=== PATIENT | female | born 1970 | race Caucasian/White ===

== ENCOUNTER → 2016-10-11 09:59 | Outpatient (CLI) | payer MEDICARE ==
--- NOTE | 2016-10-12 07:23 | NUR ---
Nutrition education for pre/post-op bariatric surgery: S: Pt unable to walk very far without being out of breath. Pt drove around to [facility] entrance so she would not have to walk very far; even with not walking very far, it took patient quite a while to breath normal. pt reports she does drink diet Dr. Kam but not a lot. Pt states she skips breakfast because she sleeps until noon. Pt gets no exercise due to her size and breathing issues. Pts 24 hour food recall and food frequency reveals pt is not eating very much at meals and she states she is not snacking. Pt also states most meals are cooked at home. Pt does report having a sweet tooth and she eats sweets daily but not excessively. Pt also loves to eat Brazilian food but reports she does not eat if very often. Pt states she does not eat fast food. Pt has been heavy all her adult life with no success with weight loss programs. Pt states she eats a [employer] frozen meal for lunch most days. O: 46 year old female with DMT2, extreme obesity Ht: 5'0 Wt: 290# IBW: 100# +/-10% BMI: 56.5 A: Pt is not being honest with RDN re: amount of food eaten at meals. According to pts 24 hour diet recall, pt is only eating ~1500 kcals per day. RDN discussed this with pt and stated she must start to weigh and measure food to eat the corret portion. Pt with no idea of what a portion size is. RDN reviewed portion sizes of commonly eaten foods. RDN provided pt with a 1500 kcal per day 5 day menus for 3 meals and 1 snack. RDN reviewed with pt and answered questions. Reviewed pre/post of bariatric diet. Diet phases post-op; 3 oz meal size; no carbonated drinks, no straws; importance of protein; vitamin supplements; stomach size and pouch stretching; no sweets or high fat foods; no soda. Pt provided with diet homework to begin now. Questions answered. Pt with fair understanding of information provided ; however, after a lifetime of eating large amounts of food RDN feels pt is going to have a very hard time adjusting to restrictive diet. RDN feels pt might not be able to make to necessary changes needed for long-term weight loss and maintenance. P: Provided pt with printed diet information and RDN name and phone number. RDN will be available if needed. Thank you for the consult.
== END | disposition home or self-care (01) ==
LOC: D.FANS 09:59
DX: Z01.818 Encounter for other preprocedural examination (principal)

== ENCOUNTER → 2016-12-05 12:20 | Outpatient (CLI) | payer MEDICARE | END | disposition home or self-care (01) | LOC: D.RT 12:20 | DX: R06.00 Dyspnea, unspecified (principal) ==

== ENCOUNTER → 2016-12-18 12:16 | Outpatient (CLI) | payer MEDICARE | END | disposition home or self-care (01) | LOC: D.CT 12:16 | DX: R94.2 Abnormal results of pulmonary function studies (principal) ==

== ENCOUNTER → 2017-02-16 12:49 | Outpatient (CLI) | payer MEDICARE | END | disposition home or self-care (01) | LOC: D.MRI 12:49 | DX: H55.00 Unspecified nystagmus (principal); H54.11 Blindness, right eye, low vision left eye ==

== ENCOUNTER → 2018-02-12 20:50 | Outpatient (CLI) | payer MEDICARE | END | disposition home or self-care (01) | LOC: D.MAMMO 01-23 11:30 | DX: Z12.31 Encounter for screening mammogram for malignant neoplasm of breast (principal) ==

== ENCOUNTER → 2019-05-07 08:15 | Outpatient (CLI) | payer MEDICARE | END | disposition home or self-care (01) | LOC: D.HCCECHO 08:15 | PROVIDERS: ATTEND Internal Medicine Cardiovascular Disease | DX: R06.00 Dyspnea, unspecified (principal) ==

== ENCOUNTER 2019-06-02 10:45 | Outpatient (CLI) | payer MEDICARE ==
[~2019-06-02] VITALS: Ht 152.4 cm; Wt 122.7 kg
--- NOTE | ~2019-06-02 | HEMODYNAMI ---
PATIENT:HAMIDA CROOK MEDICAL RECORD: [id number] : 66 LOCATION:[facility] ADMISSION DATE: 06/02/19 Generatedon:06/02/201914:01 Patient name: HAMIDA CROOK Patient #: [id number] SSN: [id number] : 1970 Date of study: 06/02/2019 Page: Of Hemodynamic Procedure Report Patient Data Patient Demographics Procedure consent was obtained First Name: HAMIDA Gender: Female Last Name: ARMAAN : 1970 [facility] Initial: KULWINDER Age: 48 year(s) Patient #: [id number] Race: SSN: [id number] Additional ID: [id number] Contact details [address]: [address] [place] [address] COURT State: [place] City: [place] Zip code: [address] Past Medical History Allergies Allergen Reaction Date Comments Reported Sulfa drugs 06/02/2019 Admission Admission Data Admission Date: 06/02/2019 Admission Time: 10:45 Procedure Procedure Types Cath Procedure Diagnostic Procedure C LH w/Coronaries Aortic Root Angiography Procedure Description Procedure Date Procedure Date: 06/02/2019 Procedure Start Time: 13:32 Procedure End Time: 13:59 Procedure Staff Name Function Javon Alex MD Performing Physician Colin Arguello RT Monitor Lula De La O RN Nurse Kayley Salomon RT Scrub Marlon Zaidi RT Scrub Indication Pulmonary hypertension Procedure Data Cath Procedure Fluoroscopy Diagnostic fluoroscopy Total fluoroscopy Time: 4.4 time: 4.4 min min Diagnostic fluoroscopy Total fluoroscopy dose: 572 dose: 572 mGy mGy Contrast Material Contrast Material Type Amount (ml) Isovue 370 112 Entry Location Entry Primary Successful Side Size Upsize Upsize Entry Closure Succes sful Closure Location (Fr) 1 (Fr) 2 (Fr) Remarks Device Remarks Femoral Right 5 Fr Exoseal artery Diagnostic catheters Device Type Used For End Catheter Placement MULTIPACK JL 4.0 5Fr Left Coronary catheter Angiography MULTIPACK 3DRC 5Fr Right Coronary catheter Angiography MULTIPACK Pigtail 5 Fr LV Angiography catheter Procedure Complications No complications Procedure Medications Medication Administration Route Dosage 0.9% NaCl I.V. 100 ml/hr Oxygen etCO2 Nasal cannula 2 l/min Lidocaine 2% added to field 20 Heparin Flush Bag added to field 2 bags (1000units/500ml NS) Radial Cocktail added to field 1 syringe (Verapamil 2mg/Nitro 400mcg/Heparin 1500units) Versed I.V. 2 mg Fentanyl I.V. 100 mcg Hemodynamics Rest Heart Rate: 77 (bpm) Pressure Samples Time Site Value (mmHg) Purpose Heart Use Rate(bpm) 13:52 LV 124/5,17 EDP 91 13:52 LV 125/5,20 Snapshot 92 13:55 AO 132/77(102) Pullback 98 13:55 LV 133/4,22 Pullback 98 Gradients Valve Time Site 1 Site 2 Mean SEP/DFP Peak To Heart Use (mmHg) (sec/min) Peak Rate (mmHg) (bpm) Aortic 13:55 LV AO 8 22 1 98 133/4,22 132/77(102) Calculations Valve P-P Mean Valve Index Valve Source Name Gradient Area Flow (cm2) Aortic 1 8 1 8 Snapshots Pre Cath Intra NCS Post Cath Vital Signs Time Heart Resp SPO2 etCO2 NIBP (mmHg) Rhythm Pain Sedation Rate (ipm) (%) (mmHg) Status Level (bpm) 13:08:44 67 15 98 40.6 135/87(100) NSR 0 (11) 10(A) , No pain 13:12:52 77 17 97 18 121/75(92) NSR 0 (11) 10(A) , No pain 13:16:56 76 15 96 43.5 126/76(96) NSR 0 (11) 10(A) , No pain 13:21:00 78 17 96 30.8 138/82(102) NSR 0 (11) 10(A) , No pain 13:25:05 84 21 96 55.5 144/87(104) NSR 0 (11) 10(A) , No pain 13:29:11 84 20 96 51.7 124/89(107) NSR 0 (11) 10(A) , No pain 13:33:15 81 21 97 53.3 124/78(94) NSR 0 (11) 10(A) , No pain 13:37:15 83 21 97 54.8 136/87(98) NSR 0 (11) 10(A) , No pain 13:41:22 85 22 95 52.5 137/80(103) NSR 0 (11) 10(A) , No pain 13:45:28 86 24 95 51.8 135/83(102) NSR 0 (11) 10(A) , No pain 13:49:32 89 23 96 53.3 140/87(114) NSR 0 (11) 10(A) , No pain 13:53:40 94 21 95 54.8 139/85(111) NSR 0 (11) 10(A) , No pain 13:58:35 96 20 96 45.8 152/84(117) NSR 0 (11) 10(A) , No pain Medications Time Medication Route Dose Verified Delivered Reason Notes E ffectiveness by by 13:07:53 0.9% NaCl I.V. 100 Javon Lula used for ml/hr Isai De La O rec therapist 13:07:59 Oxygen etCO2 2 l/min Javon Lula used for Nasal Isai De La O procedure cannula RN 13:08:05 Lidocaine 2% added 20ml Javon Javon for local to vial Isai Alex MD anesthetic field 13:08:09 Heparin Flush added 2 bags Javon Javon used for Bag to Isai Alex MD procedure (1000units/500ml field NS) 13:08:15 Radial Cocktail added 1 Javon Javon used for (Verapamil to syringe Isai Alex MD procedure 2mg/Nitro field 400mcg/Heparin 1500units) 13:22:02 Versed I.V. 2 mg Javon Lula for Isai De La O sedation RN 13:22:16 Fentanyl I.V. 100 mcg Javon Lula for Isai De La O sedation [employer]p [employer] Log Time Note 12:52:06 Informed consent obtained and on chart 12:52:28 Diagnostic Cath Status : Elective 12:53:37 Indication : Pulmonary hypertension 12:53:46 Procedure Status Elective Heart Cath (OP). 12:53:49 Lula De La O RN sent for patient. Start room use. 12:53:52 Time tracking: Regular hours (M-F 7:00 - 5:00) 12:54:01 Plan of Care:Hemodynamics will remain stable., Cardiac rhythm will remain stable., Comfort level will be maintained., Respiratory function will remain adequate., Patient/ family verbilizes understanding of procedure., Procedure tolerated without complication., Recovers from procedure without complications.. 13:02:13 Patient received from Pre/Post Procedure Room to CCL 3 Alert and oriented. Tansferred to table in Supine position. 13:04:01 Risk of Mortality: 0.5 13:04:06 Risk of blood transfusion: 1.6 13:04:11 Risk of YUDELKA: 3.6 13:07:36 Vital chart was started 13:07:53 0.9% NaCl 100 ml/hr I.V. was administered by Lula De La O RN; used for procedure; Verbal order read back and verified. 13:07:59 Oxygen 2 l/min etCO2 Nasal cannula was administered by Lula De La O RN; used for procedure; Verbal order read back and verified. 13:08:05 Lidocaine 2% 20ml vial added to field was administered by Javon Alex MD; for local anesthetic; Verbal order read back and verified. 13:08:09 Heparin Flush Bag (1000units/500ml NS) 2 bags added to field was administered by Javon Alex MD; used for procedure; Verbal order read back and verified. 13:08:15 Radial Cocktail (Verapamil 2mg/Nitro 400mcg/Heparin 1500units) 1 syringe added to field was administered by Javon Alex MD; used for procedure; Verbal order read back and verified. 13:18:47 Warm blankets applied, and latricia hugger turned on for patient comfort. 13:18:48 Correct patient and procedure confirmed by team. 13:18:48 ECG and BP/O2 sat monitors applied to patient. 13:18:49 Baseline sample Acquired. 13:18:52 Rhythm: sinus rhythm 13:18:53 Full Disclosure recording started 13:19:54 H&P Date Dictated: 05/20/2019 Within 30 days and on chart.. 13:19:57 Pre-procedure instructions explained to patient. 13:19:57 Pre-op teaching completed and patient verbalized understanding. 13:20:10 Family in patients room. 13:20:12 Patient NPO since Midnight. 13:20:26 Patient allergic to Sulfa drugs 13:20:29 Is the patient allergic to Iodine/contrast media? No. 13:20:55 Is patient on blood thinner?No 13:20:58 Patient diabetic? Yes. 13:21:01 If diabetic: On Metformin? Yes 13:21:06 If on Metformin: Last Dose? 06/01/2019 13:21:08 ----Pre-sedation anethsthesia assessment.---- 13:21:10 Previous problem with sedation/anesthesia? No ? 13:21:12 Snore? Yes 13:21:13 Sleep apnea? Yes 13:21:14 Deviated septum? No 13:21:15 Opens mouth fully? Yes 13:21:16 Sticks out tongue? Yes 13:21:19 Airway obstruction? No ? 13:21:21 Dentures? No ? 13:21:24 Pre procedure: right dorsailis pedis pulse 1+ Palpable, but thready & weak; easily obliterated 13:21:26 Modified Zane's test Ulnar < 7 seconds 13:21:29 Patient pain scale 0/10 ?. 13:21:34 IV patent on arrival in left antecubital with 0.9% NaCl at [facility]. 13:21:41 Lab results completed and on chart. 13:21:45 Right Radial & Right Groin area was prepped with chlora-prep and draped in sterile fashion 13:21:47 Alarms reviewed by R. N. 13:21:47 Sharps counted by scrub and verified by R.N. 13:21:48 Physician arrived 13:21:48 --------ALL STOP TIME OUT------ 13:21:49 Final Timeout: patient, procedure, and site verified with staff and physician. All members of the team are in agreement. 13:21:51 Right Radial & Right Groin site verified by team. 13:21:55 Fire Safety Assessment: A--An alcohol-based skin anteseptic being used preoperatively., C--Open oxygen or nitrous oxide is being used., D--An ESU, laser, or fiber-optic light is being used. 13:22:01 Physical assessment completed. ASA score P 2 - A patient with mild systemic disease as per Javon Alex MD. 13:22:02 Versed 2 mg I.V. was administered by Lula De La O RN; for sedation; Verbal order read back and verified. 13:22:10 3a) 45-59 Moderately reduced kidney function. 13:22:16 Fentanyl 100 mcg I.V. was administered by Lula De La O RN; for sedation; Verbal order read back and verified. 13:22:42 Maximum allowable contrast dose (3.7 X eGFR X 0.75)138.75 ml. 13:22:51 Sedation plan: IV Moderate Sedation Medication:Versed, Fentanyl 13:22:56 Use device set Radial Dx or PCI 13:22:58 ACIST Syringe (34391) opened to sterile field. 13:22:58 Medline Cath Pack ([id number]) opened to sterile field. 13:22:59 Bag Decanter (2002S) opened to sterile field. 13:22:59 ACIST Hand Control (32360) opened to sterile field. 13:22:59 ACIST Manifold (57787) opened to sterile field. 13:23:00 Tegaderm 4 x 4 (1626W) opened to sterile field. 13:23:01 MBrace Wrist Support ([id number]) opened to sterile field. 13:23:03 NEEDLE Cook 21G 4cm Radial (C88711) opened to sterile field. 13:23:04 EMERALD Guide Wire (875-035) opened to sterile field. 13:23:05 SHEATH 6FR RAIN (8869918) opened to sterile field. 13:27:28 Procedure started. 13:32:38 Baseline sample Acquired. 13:32:45 Zero performed for pressure channel P1 13:32:55 Local anesthetic to right radial artery with Lidocaine 2% by Javon Alex MD.INITIAL ACCESS ONLY 13:38:18 Local anesthetic to right femoral artery with Lidocaine 2% by Javon Alex MD.ADDITIONAL ACCESS 13:38:31 A 5 Fr sheath was inserted into the Right Femoral artery 13:38:39 SHEATH 5FR [place] (XWD634) opened to sterile field. 13:39:58 DIAGNOSTIC Multipack 5Fr catheter set (AY5241) opened to sterile field. 13:43:38 A MULTIPACK JL 4.0 5Fr catheter was advanced over the wire and used for Left Coronary Angiography. 13:43:42 LCA angiography performed. 13:48:56 Catheter removed. 13:51:06 A MULTIPACK 3DRC 5Fr catheter was advanced over the wire and used for Right Coronary Angiography. 13:51:09 RCA angiography performed. 13:51:10 Catheter removed. 13:51:18 A MULTIPACK Pigtail 5 Fr catheter was advanced over the wire and used for LV Angiography. 13:51:32 EXOSEAL 5Fr (EX500) opened to sterile field. 13:51:39 LV gram done using BURDEN 13:51:40 LV hemodynamics recorded. 13:51:44 Injector settings: Ml/sec: 10, Volume: 20, 13:51:46 Aortic Root visualized 13:54:34 EF : 35 % 13:55:28 Procedure type changed to Cath procedure, Diagnostic procedure, [facility], [facility] w/Coronaries, Aortic Root Angiography 13:56:27 Catheter exchanged over wire. 13:56:35 Sheath removed intact; hemostasis achieved with Exoseal to the Right Femoral artery. 13:57:08 Procedure ended.(Physican Out) 13:57:36 Contrast amount:Isovue 370 112ml. 13:57:42 Fluoroscopy time 04.40 minutes. 13:57:49 Fluoroscopy dose: 572 mGy 13:57:49 Flurop Dose total: 572 13:57:55 Dose Area Product 5556 mGy/cm. 13:57:58 Maximum allowable dose exceeded? No. 13:57:59 Sharps counted by scrub and verified by R.N. 13:58:00 Insertion/operative site no bleeding no hematoma. 13:58:03 Post-op/insertion site Right Femoral artery dressed using a 4 x 4 and Tegaderm. 13:58:06 Post right femoral artery:stable 13:58:07 Post Procedure Pulses reassessed and unchanged 13:58:09 Post procedure: right dorsailis pedis pulse 1+ Palpable, but thready & weak; easily obliterated. 13:58:13 Post-procedure physical assessment completed. ASA score P 2 - A patient with mild systemic disease as per Javon Alex MD. 13:58:18 Post procedure rhythm: sinus rhythm 13:58:20 Post procedure instruction explained to patient.Patient verbalizes understanding. 13:58:20 Procedure and supply charges have been captured, reviewed, submitted and are correct. 13:59:05 Procedure Complication : No complications 13:59:08 Vital chart was stopped 13:59:11 [facility] Findings: MVD- MD will discuss options w/ pt 13:59:15 Operative report dictated upon procedure completion. 13:59:15 See physician's report for complete and final results. 13:59:20 Report given to Pre/Post Procedure Room. 13:59:24 Patient transfered to Pre/Post Procedure Room with Stretcher. 13:59:25 Procedure ended. 13:59:25 Full Disclosure recording stopped 13:59:30 End room use (Document Last) Device Usage Item Name Manufacture Quantity Catalog Hospital Part Current Minima l Lot# / Number Charge Number Stock Stock Serial# Code ACIST Acist 1 76875 477289 249455 [id number] 20 Syringe Medical (39370) Systems Inc Medline Medline 1 [id number] 659395 40494 907304 5 Cath Pack ([id number]) Bag Microtek 1 2001S 731307 79429 378746 5 Decanter Medical Inc. () ACIST Hand Acist 1 16156 284891 906726 901815 5 Control Medical (19011) Systems Inc ACIST Acist 1 01760 850058 305637 018932 5 Manifold Medical (46851) Systems Inc Tegaderm 4 3M 1 1626W 935893 989858 566740 5 x 4 (1626W) MBrace Advanced 1 140-0250-00 726635 43254 829860 5 Wrist Vascular Support Dynamics ([id number]) NEEDLE Cook Cook Medical 1 T58992 183600 180286 484872 5 21G 4cm Radial (C53011) EMERALD Cardinal 1 502-455 153655 108450 130883 5 Guide Wire Health (502-455) SHEATH 6FR Cardinal 1 5509464 167013 4403049 225930 5 [facility] (4935155) SHEATH 5FR Terumo 1 GQG225 050554 591946 925437 5 [place] (GPY232) DIAGNOSTIC Cardinal 1 MM5988 840830 82031 644198 30 Multipack Health 5Fr catheter set (DS5716) MULTIPACK Cardinal 1 740720 5 JL 4.0 5Fr Health catheter MULTIPACK Cardinal 1 815569 5 3DRC 5Fr Health catheter MULTIPACK Cardinal 1 597237 5 Pigtail 5 Health Fr catheter EXOSEAL 5Fr Cardinal 1 EX500 006253 345869 337650 10 (EX500) Health Signature Audit [place] Stage Time Signature Unsigned Intra-Procedure 06/02/2019 Lula De La O 2:00:35 PM RN Intra-Procedure 06/02/2019 Marlon Zaidi RT(R) 2:00:54 PM Intra-Procedure 06/02/2019 Javon Alex MD 2:01:36 PM [facility] [address] [place] [address]
[2019-06-02] MEDS ORDERED: LUMIGAN 0.01%2.5 ML EACH EYE (11:00)
[2019-06-02] MEDS ORDERED: DILTIAZEM 24HR120 M3 PO (11:01)
[2019-06-02] MEDS ORDERED: ZOLOFT100 MG PO (11:02)
[2019-06-02] MEDS ORDERED: GABAPENTIN300 MG PO (11:02)
[2019-06-02] MEDS ORDERED: GLUCOPHAGE1000 MG PO (11:02)
[2019-06-02] MEDS ORDERED: ABILIFY10 MG PO (11:03)
[2019-06-02] MEDS ORDERED: LIPITOR20 MG PO (11:04)
[2019-06-02] MEDS ORDERED: COZAAR100 MG PO (11:04)
[2019-06-02] MEDS ORDERED: METOPROLOL TART50 MG PO (11:04)
[2019-06-02] MEDS ORDERED: TRESIBA FL100 UNIT/1 SC (11:05)
[2019-06-02] MEDS ORDERED: VITAMIN D31000 UNIT PO (11:06)
[2019-06-02] MEDS ORDERED: VITAMIN B-121000 MCG PO (11:06)
[2019-06-02 11:16] VITALS: BP 116/62; Ht 152.4 cm; Wt 122.7 kg
[2019-06-02 11:41] LABS: BASOPHILS 0.2 % (0-2); EOSINOPHILS 1.1 % (0-7); HEMATOCRIT 44.5 % (36.0-48.0); HEMOGLOBIN 14.6 g/dL (12-16); IMMATURE GRANULOCYTES 0.3 % (0-5); LYMPHOCYTES 18.8 % (15-50); MCH 31.8 pg (26.0-34.0); MCHC 32.8 g/dL (31.0-37.0); MCV 96.9 fL (80.0-100.0); MEAN PLATELET VOLUME 10.3 fL (7.4-10.4); MONOCYTES 5.9 % (2-11); NEUTROPHILS 73.7 % (40-80); PLATELET COUNT 214 10x3/uL (130-400); RBC 4.59 10x6/uL (4.00-5.40); RDW 13.3 % (11.5-14.5); WBC 11.4 10x3/uL (4.8-10.8)
[2019-06-02 11:44] LABS: ANION GAP 11.8 mmol/L (8-16); CALCIUM 8.9 mg/dL (8.5-10.1); CARBON DIOXIDE 31.9 mmol/L (21.0-32.0); CHOL - HDL RATIO 2.3 ratio (2.3-4.1); CREATININE - SERUM 1.2 mg/dL (0.6-1.3); LDL-HDL RATIO 0.6 ratio (1.5-3.5); POTASSIUM - SERUM 4.7 mmol/L (3.5-5.1)
[2019-06-02 12:16] LABS: HCG SERUM NEGATIVE (NEGATIVE)
--- NOTE | 2019-06-02 14:25 | NUR ---
PATIENT ARRIVED TO ROOM 5, PLACED ON CM. VSS ON 2L NC. RIGHT GROIN 5F EXOSEAL WITH DRESSING IN PLACE, NO S/S OF BLEEDING OR HEMATOMA. FAMILY AT BEDSIDE PREVIOUSLY UPDATED BY PHYSICIAN.
--- NOTE | 2019-06-02 14:40 | NUR ---
PATIENT AWAKE, LAYING FLAT IN BED. FAMILY AT BEDSIDE. VSS ON 2L NC. RIGHT GROIN DRESSING IS CDI, NO S/S OF BLEEDING OR HEMATOMA. NO C/O PAIN, NUMBNESS, OR TINGLING. NO N/V.
--- NOTE | 2019-06-02 15:10 | NUR ---
HEAD OF BED ELEVATED TO 60 DEGREES. RIGHT GROIN DRESSING IS CDI, NO S/S OF BLEEDING OR HEMATOMA. NO C/O PAIN, NUMBNESS, OR TINGLING. VSS ON 2L NC. PATIENT GIVEN SANDWICH AND SPRITE PER REQUEST, NO N/V.
--- NOTE | 2019-06-02 15:40 | NUR ---
PATIENT AWAKE, SITTING UP IN BED EATING SANDWICH. NO N/V. VSS ON 2L NC. RIGHT GROIN DRESSING IS CDI, NO S/S OF BLEEDING OR HEMATOMA. NO C/O PAIN, NUMBNESS, OR TINGLING. FAMILY PRESENT AT BEDSIDE.
--- NOTE | 2019-06-02 16:00 | NUR ---
RIGHT GROIN DRESSING IS CDI, NO S/S OF BLEEDING OR HEMATOMA. NO C/O PAIN, NUMBNESS, OR TINGLING. VSS ON ROOM AIR. NO N/V. IV REMOVED. PATIENT DISCONNECTED FROM MONITORS TO GET DRESSED.
--- NOTE | 2019-06-02 16:10 | NUR ---
WRITTEN AND VERBAL DISCHARGE INSTRUCTIONS GIVEN TO PATIENT AND MOTHER, BOTH VOICE UNDERSTANDING. PATIENT TRANSPORTED VIA WHEELCHAIR TO CAR WITH MOTHER DRIVING, ALL BELONGINGS WITH PATIENT.
== END 2019-06-02 16:10 ==
LOC: D.CATH 10:45
PROVIDERS: ATTEND Internal Medicine Cardiovascular Disease
DX: I42.9 Cardiomyopathy, unspecified (principal); I10 Essential (primary) hypertension; I47.1 Supraventricular tachycardia; R06.00 Dyspnea, unspecified

== ENCOUNTER → 2020-08-12 09:10 | Outpatient (CLI) | payer MEDICARE ==
[2019-06-02 11:16] VITALS: BMI 52.8
[~2020-08-12 09:10] MED LIST: ABILIFY10 MG PO; COZAAR100 MG PO; DILTIAZEM 24HR120 M3 PO; GABAPENTIN300 MG PO; GLUCOPHAGE1000 MG PO; LIPITOR20 MG PO; LUMIGAN 0.01%2.5 ML EACH EYE; METOPROLOL TART50 MG PO; TRESIBA FL100 UNIT/1 SC; VITAMIN B-121000 MCG PO; VITAMIN D31000 UNIT PO; ZOLOFT100 MG PO
== END | disposition home or self-care (01) ==
LOC: D.HCCECHO 09:10
PROVIDERS: ATTEND Internal Medicine Cardiovascular Disease
DX: I42.9 Cardiomyopathy, unspecified (principal)

== ENCOUNTER 2020-11-22 09:06 | Day surgery (SDC) | payer MEDICARE ==
[~2020-11-22] VITALS: Ht 152.4 cm; Wt 118.2 kg
[2020-11-22 09:33] LABS: ANION GAP 10.8 mmol/L (8-16); CALCIUM 9.2 mg/dL (8.5-10.1); CARBON DIOXIDE 31.7 mmol/L (21.0-32.0); CREATININE - SERUM 1.6 mg/dL (0.6-1.3); POTASSIUM - SERUM 4.5 mmol/L (3.5-5.1)
[2020-11-22 09:44] LABS: BASOPHILS 0.4 % (0-2); HEMATOCRIT 44.4 % (36.0-48.0); HEMOGLOBIN 14.5 g/dL (12-16); LYMPHOCYTES 16.9 % (15-50); MCHC 32.6 g/dL (31.0-37.0); MCV 92.2 fL (80.0-100.0); MONOCYTES 6.4 % (2-11); NEUTROPHILS 75.3 % (40-80); PLATELET COUNT 218 10x3/uL (130-400); RBC 4.82 10x6/uL (4.00-5.40); RDW 14.1 % (11.5-14.5); WBC 10.6 10x3/uL (4.8-10.8)
[2020-11-22 10:11] VITALS: BP 90/51; Ht 152.4 cm; Wt 118.2 kg
[2020-11-22] MEDS ORDERED: PROVERA 5 MG TAB5 MG PO (10:23)
--- NOTE | 2020-11-22 11:57 | NUR ---
2683 FRANDY FLORES SERVED. PT'S MOTHER AT SIDE.
--- NOTE | 2020-11-22 12:20 | NUR ---
DC TEACHING COMPLETE TO PT AND MOM, PIV REMOVED WITH CATHETER INTACT, PRESSURE HELD, COBAN APPLIED. MOM HELPING PT TO GET DRESSED 1240 PT DC'D VIA WC ACCOMPANIED BY THIS NURSE AND SELENA TO POV WITH ALL BELONGINGS AND DC PACKET. MOM DRIVING.
== END 2020-11-22 12:40 | disposition home or self-care (01) ==
LOC: D.OPS 09:06
PROVIDERS: Anesthesiology; ATTEND Internal Medicine Gastroenterology
DX: Z12.11 Encounter for screening for malignant neoplasm of colon (principal); K63.5 Polyp of colon; R13.10 Dysphagia, unspecified

== ENCOUNTER 2020-11-29 07:08 | Day surgery (SDC) | payer MEDICARE ==
[~2020-11-29] VITALS: Ht 152.4 cm; Wt 118.2 kg
[~2020-11-29 07:08] MED LIST changes: +PROVERA 5 MG TAB5 MG PO
[2020-11-29 07:45] LABS: ANION GAP 10.5 mmol/L (8-16); CALCIUM 8.9 mg/dL (8.5-10.1); CARBON DIOXIDE 30.6 mmol/L (21.0-32.0); CREATININE - SERUM 1.3 mg/dL (0.6-1.3); POTASSIUM - SERUM 4.1 mmol/L (3.5-5.1)
[2020-11-29 08:01] VITALS: BP 125/68; Ht 152.4 cm; Wt 118.2 kg
[2020-11-29 08:39] LABS: BASOPHILS 0.6 % (0-2); EOSINOPHILS 3.6 % (0-7); HEMATOCRIT 41.6 % (36.0-48.0); HEMOGLOBIN 13.7 g/dL (12-16); LYMPHOCYTES 20.6 % (15-50); MCH 30.5 pg (26.0-34.0); MCHC 32.9 g/dL (31.0-37.0); MCV 92.8 fL (80.0-100.0); MEAN PLATELET VOLUME 7.8 fL (7.4-10.4); MONOCYTES 7.6 % (2-11); NEUTROPHILS 67.6 % (40-80); PLATELET COUNT 211 10x3/uL (130-400); RBC 4.48 10x6/uL (4.00-5.40); RDW 13.8 % (11.5-14.5); WBC 9.4 10x3/uL (4.8-10.8)
--- NOTE | 2020-11-29 11:24 | NUR ---
DR WEINER AT BS 1200 DC TEACHING COMPLETE TO PT AND MOTHER. VERBALIZED UNDERSTANDING. 1218 ORDER FAXED TO OFFICE FOR F/U APPT 1225 PIV REMOVED BY RN WITH CATHETER INTACT, PT DRESSING. 1230 PT DC'D VIA WC TO POV WITH ALL BELONGINGS AND DC PACKET WITH MOTHER DRIVING.
--- NOTE | 2020-11-29 12:30 | NUR ---
IV REMOVED WITH TIP INTACT, DISCHARGE INSTRUCTIONS PROVIDED. WHEELED OUT TO FAMILY
--- NOTE | 2020-11-30 05:59 | OP ---
PATIENT NAME: HAMIDA CROOK MEDICAL RECORD: [id number] :66 [facility] DATE: SURGEON: MERLIN WEINER DO DATE OF OPERATION: 11/29/2020 PROCEDURE: EGD with biopsies. INDICATION FOR PROCEDURE: Dysphagia. SCOPE: Olympus video gastroscope. MEDICATIONS: Propofol 200 mg IV per anesthesia. ESTIMATED BLOOD LOSS: Minimal. COMPLICATIONS: None. FINDINGS AND DESCRIPTION OF PROCEDURE: Informed consent was given. The patient was made comfortable with the above medications. After reaching an adequate level of sedation by slow IV push, the patient was placed on her left side. The endoscope was advanced under direct visualization through the mouth to the second portion of the duodenum. The esophagus appeared normal down to the GE junction. At the GE junction, there was evidence of LA class C reflux-induced esophagitis. Biopsies were taken from the mid esophagus to rule out the presence of eosinophils and the endoscope was advanced beyond the GE junction into the stomach. It was retroflexed to view the cardia and fundus. There was a small sliding hiatal hernia. Throughout the entire stomach, there were patchy areas of gastritis consisting of erythema and congestion as well as friability. In the antrum, there were 3 separate superficial ulcerations that ranged in size from 3-mm to approximately 9-mm in diameter. They were not bleeding. Cold forceps biopsies were taken from the antrum, incisura, and body of the stomach to submit for histopathology and to rule out the presence of H. pylori. The endoscope was advanced beyond the pylorus into the duodenum, which appeared normal to the second portion. Cold forceps biopsies were taken randomly to submit for histopathology. The endoscope was withdrawn from the patient. The patient tolerated the procedure well and there were no immediate complications. IMPRESSIONS: 1. LA class C reflux-induced esophagitis. 2. Small sliding hiatal hernia. 3. Mild chronic gastritis changes. 4. Few scattered gastric ulcerations, they were not bleeding. PLAN AND RECOMMENDATIONS: 1. Discharge home when recovery parameters are met. 2. Follow up biopsy specimen results. 3. GERD diet and reflux precautions. 4. Continue current medications. 5. Omeprazole 40 mg daily times 60 days. 6. If symptoms of oropharyngeal dysphagia continues, I would recommend a modified barium swallow with speech therapy. TRANSINT:[id number] Voice Confirmation ID: [id number] DOCUMENT ID: [id number] OPERATIVE REPORT [id number] HAMIDA CROOK,MERLIN Paez DO at 0559 CC: [id number] DICTATION DATE: 11/29/20 1114 [employer] OFFICER: 11/29/20 1126 [facility] 11/29/20 [place] [id number] [place] [id number]
== END 2020-11-29 12:30 | disposition home or self-care (01) ==
LOC: D.OPS 07:08
PROVIDERS: Anesthesiology; ATTEND Internal Medicine Gastroenterology
DX: R13.10 Dysphagia, unspecified (principal); K21.00 Gastro-esophageal reflux disease with esophagitis, without bleeding; K44.9 Diaphragmatic hernia without obstruction or gangrene; K29.50 Unspecified chronic gastritis without bleeding; K25.9 Gastric ulcer, unspecified as acute or chronic, without hemorrhage or perforation